=== PATIENT | female | born 1985 | race Caucasian/White ===

== ENCOUNTER 2017-07-11 09:39 | Day surgery (SDC) | payer BC ==
[2017-07-09 15:01] LABS: BASOPHILS # (AUTO) 0.08 x10^3/uL (0-0.1); BASOPHILS % (AUTO) 2 % (0-1); EOSINOPHILS # (AUTO) 0.11 x10^3/uL (0-0.4); EOSINOPHILS % (AUTO) 2 % (1-7); LYMPHOCYTES # (AUTO) 1.94 x10^3/uL (1-3.4); LYMPHOCYTES % (AUTO) 39 % (22-44); MD NO; MEAN CORPUSCULAR HEMOGLOBIN 31.1 pg (27.0-34.8); MEAN CORPUSCULAR HGB CONC 34.1 g/dL (32.4-35.8); MEAN CORPUSCULAR VOLUME 91.3 fL (80-100); MEAN PLATELET VOLUME 8.5 fL (7.4-10.4); MONOCYTES # (AUTO) 0.46 x10^3/uL (0.2-0.8); MONOCYTES % (AUTO) 9 % (2-9); NEUTROPHILS # (AUTO) 2.45 x10^3/uL (1.8-6.8); NEUTROPHILS % (AUTO) 49 % (42-75); PLATELET COUNT 320 x10^3/uL (130-400); RED CELL DISTRIBUTION WIDTH 16.6 % (9.6-15.2)
[2017-07-09 15:03] LABS: CULTURE INDICATED? YES; MICROSCOPIC INDICATED
[2017-07-09 15:14] LABS: ALBUMIN 4.2 g/dL (3.4-5.0); ANION GAP 8 mmol/L (5-15); CALCIUM 9.4 mg/dL (8.5-10.1); CHLORIDE 103 mmol/L (98-107); CREATININE 0.92 mg/dL (0.55-1.02)
[2017-07-09 15:18] LABS: ALANINE AMINOTRANSFERASE 40 U/L (12-78); ALKALINE PHOSPHATASE 63 U/L (45-117); BILIRUBIN,TOTAL 0.8 mg/dL (0.2-1.0)
[~2017-07-11] VITALS: Ht 162.6 cm; Wt 55.9 kg
[~2017-07-11 09:39] MED LIST: PREN1TAB10 PO; RANI75TA12 PO
[2017-07-11] MEDS ORDERED: LACTATED RINGERS 1,000 ML IV SCH (10:22)
[2017-07-11 10:24] VITALS: BP 118/83
[2017-07-11] MEDS ORDERED: LIDOCAINE-MPF 1%, 2ML ONE (10:29)
[2017-07-11] MEDS ORDERED: LIDOCAINE 1%, 2ML SQ PRN (10:30)
[2017-07-11] MEDS ORDERED: FENTANYL PF 250 MCG/5ML ONE (10:54)
[2017-07-11] MEDS ORDERED: MIDAZOLAM 1 MG/ML, 2ML ONE (10:54)
[2017-07-11] MEDS ORDERED: BUPIVACAINE/PF 0.25% ONE (11:05)
[2017-07-11] MEDS ORDERED: KETOROLAC 30 MG/1 ML ONE (12:29)
[2017-07-11] MEDS ORDERED: PROPOFOL 10 MG/ML, 20ML ONE (12:29)
[2017-07-11] MEDS ORDERED: ONDANSETRON 2MG/ML, 2ML ONE (12:29)
[2017-07-11] MEDS ORDERED: DEXAMETHASONE 4 MG/ML, 1ML ONE (12:29)
[2017-07-11] MEDS ORDERED: OXYcodone 5 MG/5 ML ORAL.SOL UDC PO PRN (13:00)
[2017-07-11] MEDS ORDERED: EPHEDRINE 50 MG/ML, 1ML IVPush PRN (13:00)
[2017-07-11] MEDS ORDERED: hydrALAzine 20 MG/ML, 1ML IV PRN (13:00)
[2017-07-11] MEDS ORDERED: METOPROLOL 1 MG/ML, 5ML IV PRN (13:00)
[2017-07-11] MEDS ORDERED: ALBUTEROL SULFATE 2.5 MG/3 ML NPPB PRN (13:00)
[2017-07-11] MEDS ORDERED: HYDROmorphone 1 MG/ML, 1ML IV PRN (13:00)
[2017-07-11] MEDS ORDERED: ACETAMINOPHEN 325 MG TABLET PO PRN (13:00)
[2017-07-11] MEDS ORDERED: FENTANYL PF 100 MCG/2ML IV PRN (13:00)
[2017-07-11] MEDS ORDERED: HYDROcodone/APAP 7.5-325MG/15ML UDC PO PRN (13:00)
[2017-07-11] MEDS ORDERED: LABETALOL 5MG/ML, 20ML IV PRN (13:00)
[2017-07-11] MEDS ORDERED: PROMETHAZINE 12.5 MG SUPP PR PRN (13:00)
[2017-07-11] MEDS ORDERED: MEPERIDINE/PF 25MG/0.5ML IVPush PRN (13:00)
[2017-07-11] MEDS ORDERED: MIDAZOLAM 1 MG/ML, 2ML IV PRN (13:00)
[2017-07-11] MEDS ORDERED: ONDANSETRON 2MG/ML, 2ML IVPush PRN (13:00)
[2017-07-11] MEDS ORDERED: PROMETHAZINE 25 MG/ML, 1ML IV PRN (13:00)
[2017-07-11] MEDS ORDERED: DIAZEPAM 5 MG/ML, 2ML IVPush PRN (13:00)
[2017-07-11] MEDS ORDERED: ACETAMINOPHEN 650 MG/20.3 ML UDC ONE (13:18)
[2017-07-11] MEDS ORDERED: OXYcodone 5 MG/5 ML ORAL.SOL UDC ONE (13:18)
== END 2017-07-11 16:40 ==
LOC: OUT 09:39
PROVIDERS: ATTEND Obstetrics & Gynecology
DX: S31.41XA Laceration without foreign body of vagina and vulva, initial encounter (principal); K21.9 Gastro-esophageal reflux disease without esophagitis; X58.XXXA Exposure to other specified factors, initial encounter; Y93.89 Activity, other specified; Y92.89 Other specified places as the place of occurrence of the external cause; Y99.8 Other external cause status; Z98.890 Other specified postprocedural states
CPT/HCPCS: 13132; 36415; 80053; 81001; 84702; 85025; 86850; 86900; 87086; 88305; J1100; J1885; J2250; J2405; J2704; J3010; J3490; J7120

== ENCOUNTER 2018-09-10 14:32 | Outpatient (CLI) | payer OTHER | END 2018-09-10 23:59 | disposition home or self-care (01) | LOC: CFH 14:32 | PROVIDERS: ATTEND Obstetrics & Gynecology | DX: O92.29 Other disorders of breast associated with pregnancy and the puerperium (principal); Z3A.17 17 weeks gestation of pregnancy; Z80.3 Family history of malignant neoplasm of breast ==

== ENCOUNTER 2020-09-14 17:23 | Emergency (ER) | payer OTHER ==
[~2020-09-14] VITALS: Ht 162.6 cm; Wt 61.3 kg
[~2020-09-14 17:23] MED LIST changes: +IBUP-1222 PO; +OXYC1TAB14 PO; +RANI-244 PO; -RANI75TA12 PO
[2020-09-14 17:35] VITALS: BP 157/100
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
[2020-09-14] MEDS ORDERED: OXYcodone/APAP 5/325MG TABLET ONE (18:00)
--- NOTE | 2020-09-14 18:13 | NUR ---
PT IN CT
--- NOTE | 2020-09-14 18:27 | NUR ---
PT BACK FROM CT. MEDICATED FOR PAIN.
[2020-09-14] MEDS ORDERED: OXYcodone/APAP 5/325MG TABLET PO ONE (18:30)
== END 2020-09-14 18:47 | disposition home or self-care (01) ==
LOC: ED 18:41
DX: S16.1XXA Strain of muscle, fascia and tendon at neck level, initial encounter (principal); V49.49XA Driver injured in collision with other motor vehicles in traffic accident, initial encounter; Y93.89 Activity, other specified; Y92.410 Unspecified street and highway as the place of occurrence of the external cause; Y99.8 Other external cause status
CPT/HCPCS: 72125; 99284